=== PATIENT | male | born 2000 | race Caucasian/White ===

== ENCOUNTER 2024-08-10 12:46 | Emergency (ER) | payer OTHER, SELFPAY ==
[2024-08-10 12:52] VITALS: BP 151/78; PULSE 75; TEMP 36.8; O2SAT 99; BMI 26.6
--- NOTE | 2024-08-10 13:09 | PC.NURSE ---
pt c/o lightheadedness since yesterday. worse with movement. drinks 1 energy drink a day. denies any nausea but felt like he was going to pass out yesterday.
--- NOTE | 2024-08-10 13:27 | ECG_ITS ---
[facility] Test Date: 2024-08-10 Pat Name: NAGI PENNINGTON Department: Room: - Gender: Male [employer]: : 2000 Requested By: [id number] Order Number: [id number] Reading MD: MERVAT JOVEL Measurements Intervals [place] Rate: 65 P: 73 TX: 124 QRS: 84 QRSD: 90 T: 56 QT: 364 QTc: 376 Interpretive Statements 1100 Sinus rhythm 9110 normal ECG No previous ECG available for comparison Electronically Signed On 08-10-2024 22:28:35 EDT by MERVAT JOVEL
--- NOTE | 2024-08-10 14:00 | ED_ITS ---
HPI - Dizziness General Chief Complaint: Dizziness Stated Complaint: DIZZINESS Time Seen by Provider: 08/10/24 12:50 Source: patient Mode of arrival: walk-in History of Present Illness HPI Narrative: Patient presents to ED complaining of dizziness. Patient states that yesterday he had dizziness when he move his head around after waking up. He said it just came on suddenly. He was not doing anything strenuous. He said it got better w hen he would lay down and lay still but worse when he was up and moving around. He went to an urgent care and they sent him in for further evaluation. He does report that his had some sinus pressure and pressure in his ears but no pain. No cough nausea vomiting. No chest pain. He did not have any syncopal episodes. There is some history of vertigo in the family however he has never had any sustained vertigo in the past. He said it is better today but they came in to get checked out. No other at this time Related Data Previous Rx's ?Medication ?Instructions ?Recorded meclizine 25 mg tablet 25 mg PO BID PRN dizziness #20 tabs 08/10/24 Allergies Allergy/AdvReac Type Severity Reaction Status Date / Time No Known Drug Allergies Allergy Verified 08/10/24 12:51 Review of Systems ROS Status of ROS 10 or more systems reviewed and unremark able except as noted in history and below PFSH PFSH Social History Little interest or pleasure in doing things: not at all Feeling down, depressed, or hopeless: not at all Exam Narrative Exam Narrative: Time Seen: [] Vital Signs: [Per nurse's notes.] General: [Alert] Skin: [Warm, dry, no rash.] Head: [Normocephalic, atraumatic.] Neck: [Supple, trachea midline.] Eye: [Pupils are equal, round and reactive to light, extraocular movements are intact, normal conjunctiva.] Ears, nose, mouth and throat: oral mucosa moist. Cardiovascular: [Regular rate and rhythm, no murmur.] Respiratory: [Lungs are clear to auscultation, respirations are non-labored, breath sounds are equal.] Chest wall: [No tenderness, no deformity.] Gastrointestinal: [Soft, nontender, non distended, normal bowel sounds.] MSK: 5 out of 5 muscle strength x 4 extremities no calf pain or edema Lymphatics: [No lymphadenopathy.] Psychiatric: [Cooperative, appropriate mood & affect.] Neurological: [Alert and oriented to person, place, time, and situation, no focal neurological deficit observed.] Constitutional Vital Signs, click to edit/add: Last Vital Signs Temp 98.2 F 08/10/24 12:52 Pulse 75 08/10/24 12:52 Resp 18 08/10/24 12:52 BP 151/78 H 08/10/24 12:52 Pulse Ox 99 08/10/24 12:52 Course Vital Signs Vital signs: Vital Signs Temperature 98.2 F 08/10/24 12:52 Pulse Rate 75 08/10/24 12:52 Respiratory Rate 18 08/10/24 12:52 Blood Pressure 151/78 H 08/10/24 12:52 Pulse Oximetry 99 08/10/24 12:52 Temperature 98.2 F 08/10/24 12:52 Pulse Rate 75 08/10/24 12:52 Respiratory Rate 18 08/10/24 12:52 Blood Pressure 151/78 H 08/10/24 12:52 Pulse Oximetry 99 08/10/24 12:52 MDM - Dizziness MDM Narrative Medical decision making narrative: Patient has what sounds like vertigo. Discussed workup with mom and patient which could include blood work and CT scan of the brain however they wanted to try a more conservative approach at first. We will try decongestant and the meclizine and follow-up with the ENT. Patient given instructions to return if worsening symptoms, dizziness syncope neurological deficits or changes or anything else that is concerning. Patient and family are comfortable with care plan for home Differential Diagnosis Differential diagnosis: Likely benign paroxysmal positional vertigo and orthostatic hypotension ECG Data Attestation: I personally reviewed and interpreted this ECG as follows: Interpretation: EKG INTERPRETATION Time: []1300 Rate: [] 65 Rhythm: _ [] Normal sinus rhythm ST segments: _ [] No acute ST elevation or depression T waves: _ [] Ectopy: _ [] P wave/UT interval: _ [] QRS interval: _ [] QT interval: _ [] Comparison: _ [] Comparison EKG date: [] Performed by: [self] Discharge Plan Discharge Chief Complaint: Dizziness Clinical Impression: Benign paroxysmal positional vertigo Patient Disposition: Home, Self-Care Time of Disposition Decision: 13:21 Condition: Good Mode of Transportation: Private Vehicle Prescriptions / Home Meds: New meclizine 25 mg tablet 25 mg PO BID PRN (Reason: dizziness) Qty: 20 0RF Print Language: Tamazight Instructions: Vertigo (ED) Referrals: Physician,Non-Staff, [Primary Care Provider] - 1 week FRANNY SARABIA [Physician] - 1 week Discharge Date/Time: 08/10/24 13:31
== END 2024-08-10 13:31 | disposition home or self-care (01) ==
PROVIDERS: Emergency Provider Emergency Medicine
DX: H81.10 Benign paroxysmal vertigo, unspecified ear (principal)
CPT/HCPCS: 93005; 99283